=== PATIENT | male | born 1965 | race African-American/Black ===

== ENCOUNTER 2020-09-05 13:03 | Emergency (ER) | payer MEDICARE, MEDICAID ==
[~2020-09-05] VITALS: Ht 177.8 cm; Wt 100.0 kg
[~2020-09-05 13:03] MED LIST: ARIP30TA2 PO; ATOR10TA PO; DOCU-150 PO; TRAZ-252 PO
[2020-09-05] MEDS ORDERED: IBUPROFEN 800MG TABLET PO ONE (14:00)
[2020-09-05 14:15] VITALS: BP 109/73
== END 2020-09-05 14:32 | disposition home or self-care (01) ==
LOC: ER 13:03
DX: T16.2XXA Foreign body in left ear, initial encounter (principal); Z86.59 Personal history of other mental and behavioral disorders; X58.XXXA Exposure to other specified factors, initial encounter; Y93.89 Activity, other specified; Y92.89 Other specified places as the place of occurrence of the external cause; Y99.8 Other external cause status
CPT/HCPCS: 69200; 99284